=== PATIENT | male | born 2000 | race Caucasian/White ===

== ENCOUNTER 2022-11-07 13:07 | Emergency (ER) | payer BC, SELFPAY ==
[2022-11-07 13:09] VITALS: BP 111/71; PULSE 96; RESP 14; TEMP 36.5; O2SAT 97; BMI 28.6
--- NOTE | 2022-11-07 13:20 | EDS_ITS ---
HPI History of Present Illness Chief Complaint: Complaint Narrative Narrative: 22-year-old patient presents with urinary retention/hesitancy that has been ongoing for the last day. Of note, he states that he takes spironolactone and estrogen for gender transition. This is never happened previously except for maybe once. He feels like he has the urge to urinate and has bladder discomfort, but has been unable to fully urinate today. No fevers or chills, no nausea or vomiting, no problems with bowel movements. No other significant past medical history. PFSH PFSH Allergy/AdvReac Type Severity Reaction Status Date / Time amoxicillin AdvReac Hives Verified 11/07/22 13:09 Social History Smoking Status: Never smoker ROS ROS ED ROS Narrative Constitutional: No fever, no chills. HEENT: No sore throat. No neck pain. No loss of vision. No rhinorrhea. Cardiovascular: No chest pain. No palpitations. No pedal edema. Respiratory: No cough, no shortness of breath. Abdominal: No abdominal pain. No nausea. No vomiting. Genitourinary: Positive urinary retention/dysuria. No hematuria. Musculoskeletal: No myalgias. No arthralgias. Neurologic: No headaches. No dizziness. No lightheadedness. Skin: No rash. No change in color. Psychiatric: No depression. No anxiety. EXAM Physical Exam Narrative Exam Narrative: Afebrile. Vital signs noted. HEENT: Normocephalic. Atraumatic. PERRL, EOMI. Neck soft and supple. No point tenderness or step off. Cardiovascular: Regular rate and rhythm. No murmurs, rubs, or gallops appreciated. Respiratory: No tachypnea. Lungs clear to auscultation bilaterally. Gastrointestinal: Abdomen soft, minimal suprapubic discomfort with palpation, with normoactive bowel sounds. No rebound or guarding. Neurological: Awake. Alert. Nonfocal, nonlateralizing. Skin: No rash. Normal color. No pallor. Musculoskeletal: No pedal edema. Full range of motion extremities. Const Vital Signs: 11/07/22 13:09 Temperature 97.7 F L Temperature Source Temporal Pulse Rate 96 Respiratory Rate 14 Blood Pressure 111/71 Blood Pressure Mean 84 Pulse Ox 97 Oxygen Delivery Method Room Air MDM MDM MDM Narrative Medical decision making narrative: Concern is for urinary retention. Bladder scan will be performed. Additionally, I will look for UTI given his symptoms. In review of his urinalysis, it is negative for infection with 0-5 WBCs but negative nitrites, negative ketones. I do not feel antibiotics are indicated. His bladder scan was performed by the RN and he only had 85 mL of urine in his bladder. He was bolused normal saline 1 L intravenously. To look for any signs of kidney failure given that he is on spironolactone, CBC and BMP were performed. In review of his laboratory work he has a normal white count of 9.2, normal hemoglobin of 15, hematocrit normal at 43.0, normal platelet count of 244. BUN is normal at 15 with creatinine also normal at 0.95. At this point in time, I am unsure as to the cause of his dysuria and feelings of urinary retention. I d o not feel that CT imaging is indicated as he has a nonsurgical abdomen. I feel he can be discharged safely home to follow-up with his primary care provider, and he was also referred to urology. Return instructions to the emergency department were reviewed. Disposition is discharged home in stable condition. History & Record Review Discussion w/independent historian: Patient Additional record(s) reviewed:: No prior records Lab Data Attestation: I reviewed the patient's lab results. Labs: Laboratory Results - last 24 hr 11/07/22 11/07/22 11/07/22 13:27 13:40 13:40 WBC 9.2 RBC 4.93 Hgb 15.0 Hct 43.0 MCV 87.2 MCH 30.4 MCHC 34.9 RDW Std Deviation 36.7 RDW Coeff of Heidi 11.5 L Plt Count 244 MPV 9.7 Immature Gran % (Auto) 0.500 Neut % (Auto) 60.1 Lymph % (Auto) 26.9 [place] % (Auto) 11.0 H Eos % (Auto) 1.3 Baso % (Auto) 0.2 Absolute Neuts (auto) 5.5 Absolute Lymphs (auto) 2.49 Nucleated RBC % 0 Sodium 136 Potassium 3.9 Chloride 106 Carbon Dioxide 27.0 Anion Gap 3 L BUN 15 Creatinine 0.95 Estim Creat Clear Calc 129.90 Est GFR (MDRD) Af Amer 127 Est GFR (MDRD) Non-Af 105 BUN/Creatinine Ratio 15.8 Glucose 118 H Calcium 9.3 Urine Color Yellow Urine Clarity Clear Urine pH 6.5 Ur Specific [place] 1.010 Urine Protein Negative Urine Glucose (UA) Normal Urine Ketones Negative Urine Occult Blood Negative Urine Nitrite Negative Urine Bilirubin Negative Urine Urobilinogen Normal Ur Leukocyte Esterase 25 H Urine RBC 0 SEEN Urine WBC 0-5 SEEN Ur Squamous Epith Cells 0-5 SEEN Urine Bacteria 0 SEEN Urine Mucus 0 SEEN Discharge Plan Triage Chief Complaint: Complaint ED Provider: Yevgeniy Reece Dx/Rx/DC Orders Clinical Impression: Difficulty in urination, Dysuria Instructions: ED Dysuria, Uncertain Cause (Adult) Primary Care Provider: Care Physician,No Primary Referrals: Lupillo Monet MD [Med Staff - Active Staff] - As Needed Town Doctor,Out of [Non-Staff] - Activity Restrictions/Additional Instructions: Continue to drink plenty of oral fluids. Follow-up with your primary care physician as soon as possible. Follow-up with urology as needed. Disposition Disposition: Home, Self Care
[2022-11-07 13:34] LABS: Bacteria 0 SEEN /hpf (None Seen); Mucous, Urine 0 SEEN /hpf (<or=2+); Red Blood Cells-Urine 0 SEEN /hpf (0-5)
[2022-11-07 13:36] LABS: Color, Urine Yellow (Yellow); Glucose, Dipstick Normal (Normal); Ketone-Dipstick Negative (Negative); Leukocyte Esterase-Dipstick 25 /ul (Negative); Nitrite-Dipstick Negative (Negative); Occult Blood-Urine Negative /ul (Negative); Protein-Dipstick Negative (Negative); Urine Bilirubin Dipstick Negative (Negative); Urine Clarity Clear (Clear); Urine Urobilinogen Normal (Normal); Urine pH 6.5 (5.0 - 8.0)
[2022-11-07] MEDS: 0.9% Normal Saline 1,000 ML 999 ML IV (13:45)
[2022-11-07 13:51] LABS: Absolute Lymphocyte Count 2.49 X10^3/uL (0.83-4.51); Absolute Neutrophil Count 5.5 X10^3/uL (2.0-7.7); Basophil# 0.02 X10^3/uL; Basophil% 0.2 % (0-1); Eosinophil# 0.12 X10^3/uL; Eosinophils% 1.3 % (0-5); Lymphocyte # 2.49 X10^3/ul (0.83-4.51); Lymphocyte % 26.9 % (19-41); Mean Corp Hgb Conc 34.9 g/dL (32-36); Mean Corpuscular Hgb 30.4 pg (27.0-32.0); Mean Corpuscular Volume 87.2 fL (80-94); Mean Platelet Vol. 9.7 fl (6.2-12.0); Monocyte# 1.02 X10^3/uL; NRBC Flagged by Analyzer 0 % (0-5); Neutrophil # 5.54 X10^3/uL (2.7-7.7); Neutrophil % 60.1 % (47-70); Platelet Count 244 K/mm3 (150-450); RBC Distribution Width CV 11.5 % (11.6-14.6); RBC Distribution Width SD 36.7 fl (35.1-43.9); Red Blood Count 4.93 M/mm3 (4.6-6.2); White Blood Count 9.2 K/mm3 (4.4-11.0)
[2022-11-07 13:58] LABS: Squamous Epithelial Cells - UA 0-5 SEEN /hpf (0-5); White Blood Cells 0-5 SEEN /hpf (0-5)
[2022-11-07 14:03] LABS: Anion Gap 3 (5-15); BUN 15 mg/dL (7-18); BUN/Creat Ratio 15.8 RATIO (10-20); Calcium,Total 9.3 mg/dL (8.5-10.1); Chloride 106 mmol/L (98-107); Creatinine, Serum 0.95 mg/dL (0.70-1.30); EST Glomerular Filtration Rate 105 mL/min (>60); Est Glom Filt Rate - Afr Amer 127 mL/min (>60); Glucose 118 mg/dL (74-106); Potassium 3.9 mmol/L (3.5-5.1); Sodium Level 136 mmol/L (136-145)
== END 2022-11-07 14:48 | disposition home or self-care (01) ==
PROVIDERS: Emergency Provider Emergency Medicine; Visit Provider Emergency Medicine
DX: R30.0 Dysuria (principal); R33.9 Retention of urine, unspecified; R39.11 Hesitancy of micturition
CPT/HCPCS: 80048; 81001; 85025; 96360; 99281; 99282; J7030